=== PATIENT | male | born 1980 | race Caucasian/White ===

== ENCOUNTER → 2024-09-19 12:00 | Outpatient (CLI) | payer BC, SELFPAY ==
[2024-09-19 13:29] LABS: Influenza A - CEPHEID Flu A NEGATIVE (NEGATIVE); Influenza B - CEPHEID Flu B NEGATIVE (NEGATIVE); Respiratory Syncytial Virus Negative (Negative)
[2024-09-19 13:30] LABS: COVID-19 CEPHEID 4-PLEX PCR Negative (Negative)
== END ==
PROVIDERS: Visit Provider Physician Assistant Surgical
DX: J02.9 Acute pharyngitis, unspecified (principal); Z20.2 Contact with and (suspected) exposure to infections with a predominantly sexual mode of transmission; R05.1 Acute cough
CPT/HCPCS: 0241U; 87070; 87210

== ENCOUNTER → 2024-09-19 12:49 | Outpatient (CLI) | payer BC, SELFPAY ==
[2024-09-19 15:26] LABS: HIV 1 & 2 Ab/Ag 4th Gen Combo NEGATIVE (NEGATIVE); Hep C Virus Ab w/Reflex Quant NEGATIVE s/c (NEGATIVE); Hepatitis B Surface Antigen NEGATIVE s/c (NEGATIVE)
[2024-09-19 18:26] LABS: Urine N gonorrhoeae NOT DETECTED
[2024-09-19 18:44] LABS: Urine Chlamydia NOT DETECTED
[2024-09-21 03:11] LABS: RPR Screen Non Reactive (Non Reactive)
== END ==
PROVIDERS: Referring Provider Physician Assistant Surgical; Visit Provider Physician Assistant Surgical
DX: Z20.2 Contact with and (suspected) exposure to infections with a predominantly sexual mode of transmission (principal); J02.9 Acute pharyngitis, unspecified; R05.1 Acute cough
CPT/HCPCS: 0241U; 36415; 86592; 86695; 86696; 86803; 87070; 87210; 87340; 87389; 87491; 87591